=== PATIENT | female | born 1975 | race Asian ===

== ENCOUNTER 2016-11-02 21:12 | Inpatient (IN) | payer OTHER ==
[~2016-11-02] VITALS: Ht 170.2 cm; Wt 127.3 kg
[2016-11-02] MEDS ORDERED: PROTONIX 40MG T40 MG PO (21:24)
[2016-11-02] MEDS ORDERED: PREDNISONE20 MG PO (21:25)
[2016-11-02] MEDS ORDERED: CELLCEPT 5500 MG/TAB PO (21:26)
[2016-11-02] MEDS ORDERED: EFFEXOR 50M50 MG/TAB PO (21:27)
[2016-11-02] MEDS ORDERED: COUMADIN 1010 MG/TAB PO (21:27)
[2016-11-02] MEDS ORDERED: LIPITOR 40MG TA40 MG PO (21:27)
[2016-11-02] MEDS ORDERED: NOVOLOG 100U100 U/M1 SQ (21:28)
[2016-11-02] MEDS ORDERED: LANTUS100 U/ML SQ (21:28)
[2016-11-02] MEDS ORDERED: ELIQUIS 5MG PO (21:29)
[2016-11-02 22:32] LABS: BASO # 0.1 (0.0-0.2); BASO % 0.4 % (0.0-2.0); EOS % 0.2 % (0-4.0); GRAN # 13.4 (1.4-6.5); GRAN % 85.3 % (42.2-75.2); HEMATOCRIT 43.6 % (37.0-47.0); HEMOGLOBIN 13.9 g/dl (12.5-16.0); LYMPH % 6.1 % (20.0-51.0); MEAN CELL VOLUME 91 fl (80.0-100.0); MEAN CORPUSCULAR HEMOGLOBIN 29 pg (27.0-31.0); MEAN CORPUSCULAR HGB CONC 32 g/dl (33.0-37.0); MEAN PLATELET VOLUME 9.4 fl (7.4-10.4); MONO # 0.9 (0.1-0.6); MONO % 5.4 % (1.7-9.3); PLATELET COUNT 385 K/mm3 (130-400); RED BLOOD COUNT 4.82 M/mm3 (4.10-5.30); REDCELL DISTRIBUTION WIDTH-CV 14.8 % (11.5-14.5); WHITE BLOOD COUNT 15.7 K/mm3 (4.8-10.8)
[2016-11-02 22:40] LABS: INR 0.9 (0.8-3.0); PROTHROMBIN TIME 10.4 SECONDS (9.7-12.8)
[2016-11-02 22:42] LABS: PARTIAL THROMBOPLASTIN TIME 28.9 SECONDS (26.0-37.0)
[2016-11-02 22:45] LABS: ADJUSTED CALCIUM 9.6 mg/dL (8.4-10.2); ALANINE AMINOTRANSFERASE 23 U/L (9-52); ALKALINE PHOSPHATASE 105 U/L (50-136); ANION GAP 15 mmol/L (7-16); BILIRUBIN,TOTAL 0.6 mg/dL (0.0-1.0); BLOOD UREA NITROGEN 13 mg/dL (7-17); C-REACTIVE PROTEIN 0.7 mg/dL (0.0-0.9); CALCIUM 9.6 mg/dL (8.4-10.2); CARBON DIOXIDE 24 mmol/L (22-30); CHLORIDE 100 mmol/L (98-107); CREATININE, serum 0.54 mg/dL (0.52-1.25); GLUCOSE 288 mg/dL (74-106); LIPASE 244 U/L (23-300); POTASSIUM 3.7 mmol/L (3.4-5.0); SODIUM 139 mmol/L (137-145); TOTAL PROTEIN 7.4 gm/dL (6.4-8.2)
[2016-11-02 22:51] LABS: B-TYPE NATRIURETIC PEPTIDE 17 pg/mL (0-125)
[2016-11-02 23:02] LABS: PH 6 (5-8); SQUAMOUS EPITHELIAL None Seen /hpf; URINE APPEARANCE Clear; URINE BACTERIA Rare /hpf; URINE BILIRUBIN Negative (NEGATIVE); URINE BLOOD 1+ (NEGATIVE); URINE COLOR Yellow; URINE GLUCOSE 3+ (NEGATIVE); URINE KETONE Trace (NEGATIVE); URINE UROBILINOGEN Negative (NEGATIVE); URINE WBC 0-2 /hpf
[2016-11-02 23:09] LABS: AMPHETAMINE URINE POSITIVE; BARBITURATES URINE NEGATIVE; BENZODIAZEPINES URINE NEGATIVE; BUPRENORPHINE URINE NEGATIVE; METHADONE URINE NEGATIVE; OPIATES URINE NEGATIVE; OXYCODONE URINE NEGATIVE; PHENCYCLIDINE URINE NEGATIVE; PROPOXYPHENE URINE NEGATIVE; THC CANNABINOIDS URINE NEGATIVE
[2016-11-03 02:24] VITALS: BP 124/78; PULSE 89; TEMP 98
[2016-11-03 08:17] VITALS: BP 120/75; PULSE 92; TEMP 98.3
[2016-11-03 09:55] LABS: HEMATOCRIT 41.5 % (37.0-47.0); HEMOGLOBIN 13.4 g/dl (12.5-16.0); MEAN CELL VOLUME 90 fl (80.0-100.0); MEAN CORPUSCULAR HEMOGLOBIN 29 pg (27.0-31.0); MEAN CORPUSCULAR HGB CONC 32 g/dl (33.0-37.0); MEAN PLATELET VOLUME 9.1 fl (7.4-10.4); PLATELET COUNT 330 K/mm3 (130-400); RED BLOOD COUNT 4.61 M/mm3 (4.10-5.30); REDCELL DISTRIBUTION WIDTH-CV 14.8 % (11.5-14.5); WHITE BLOOD COUNT 12.2 K/mm3 (4.8-10.8)
[2016-11-03 09:56] LABS: ADD PATHOLOGY DIFF REVIEW NO
[2016-11-03 10:03] LABS: CREATININE, serum 0.59 mg/dL (0.52-1.25); POTASSIUM 3.5 mmol/L (3.4-5.0)
[2016-11-03 12:38] VITALS: BP 127/98; PULSE 92; TEMP 97.5
[2016-11-03 13:12] LABS: BAND 5 % (0-10); BASOPHIL 1 % (0-2); NEUTROPHILS 69 % (42.0-75.2); PLATELET ESTIMATE NORMAL (NORMAL); TOTAL CELLS COUNTED 100
[2016-11-03 16:26] VITALS: BP 132/74; PULSE 96; TEMP 98
[2016-11-03 19:27] VITALS: BP 142/88; PULSE 98; TEMP 98.3
[2016-11-03 23:26] VITALS: BP 124/69; PULSE 91; TEMP 98.3
[2016-11-04 04:25] VITALS: BP 129/87; PULSE 86; TEMP 98.7
[2016-11-04 08:06] VITALS: BP 139/93; PULSE 95; TEMP 98.1
[2016-11-04 11:11] VITALS: BP 142/87; PULSE 91; TEMP 98
[2016-11-04] MEDS ORDERED: ZOFRAN ODT4 MG PO (14:27)
[2016-11-04] MEDS ORDERED: AMOXICILLIN 8751 TAB PO (14:27)
[2016-11-04 15:32] VITALS: BP 118/74; PULSE 93; TEMP 98.4
== END 2016-11-04 17:33 | disposition home or self-care (01) | DRG 315 ==
LOC: COL.ER 21:12 → MEDICAL 11-03 00:44
PROVIDERS: Family Medicine; Physician Assistant
DX: T80.211A Bloodstream infection due to central venous catheter, initial encounter (principal); R65.10 Systemic inflammatory response syndrome (SIRS) of non-infectious origin without acute organ dysfunction; E11.42 Type 2 diabetes mellitus with diabetic polyneuropathy; F15.90 Other stimulant use, unspecified, uncomplicated; E78.5 Hyperlipidemia, unspecified; Z79.4 Long term (current) use of insulin; Z86.711 Personal history of pulmonary embolism; Z79.02 Long term (current) use of antithrombotics/antiplatelets
CPT/HCPCS: 99223-AI; 99239; J1170; J1815; J2405; J2543; J2550; J3370; J7030; J7040; J7050; J7517; Q9967

== ENCOUNTER 2016-11-18 21:20 | Inpatient (IN) | payer OTHER ==
[~2016-11-18] VITALS: Ht 170.2 cm; Wt 125.1 kg
[~2016-11-18 21:20] MED LIST: AMOXICILLIN 8751 TAB PO; CELLCEPT 5500 MG/TAB PO; COUMADIN 1010 MG/TAB PO; EFFEXOR 50M50 MG/TAB PO; ELIQUIS 5MG PO; LANTUS100 U/ML SQ; LIPITOR 40MG TA40 MG PO; NOVOLOG 100U100 U/M1 SQ; PREDNISONE20 MG PO; PROTONIX 40MG T40 MG PO; ZOFRAN ODT4 MG PO
[2016-11-18 22:11] LABS: BASO % 0.3 % (0.0-2.0); EOS % 0.3 % (0-4.0); GRAN % 76.2 % (42.2-75.2); HEMATOCRIT 38.8 % (37.0-47.0); HEMOGLOBIN 12.6 g/dl (12.5-16.0); MEAN CELL VOLUME 90 fl (80.0-100.0); MEAN CORPUSCULAR HEMOGLOBIN 29 pg (27.0-31.0); MEAN CORPUSCULAR HGB CONC 33 g/dl (33.0-37.0); MEAN PLATELET VOLUME 9.2 fl (7.4-10.4); MONO # 0.9 (0.1-0.6); MONO % 6.3 % (1.7-9.3); PLATELET COUNT 419 K/mm3 (130-400); RED BLOOD COUNT 4.29 M/mm3 (4.10-5.30); REDCELL DISTRIBUTION WIDTH-CV 14.6 % (11.5-14.5); WHITE BLOOD COUNT 14.4 K/mm3 (4.8-10.8)
[2016-11-18] MEDS ORDERED: GLUCOPHAGE500 MG/TAB PO (22:23)
[2016-11-18] MEDS ORDERED: PREDNISONE 5MG5 MG PO (22:24)
[2016-11-18] MEDS ORDERED: NEURONTIN100 MG/CAP PO (22:25)
[2016-11-18 22:26] LABS: PH 6 (5-8); SQUAMOUS EPITHELIAL 0-2 /hpf; URINE APPEARANCE Clear; URINE BACTERIA None Seen /hpf; URINE BILIRUBIN Negative (NEGATIVE); URINE BLOOD Negative (NEGATIVE); URINE COLOR Yellow; URINE GLUCOSE 2+ (NEGATIVE); URINE KETONE Trace (NEGATIVE); URINE RBC 0-2 /hpf; URINE UROBILINOGEN Negative (NEGATIVE); URINE WBC 0-2 /hpf
[2016-11-18 22:35] LABS: ADJUSTED CALCIUM 8.8 mg/dL (8.4-10.2); ALANINE AMINOTRANSFERASE 27 U/L (9-52); ALBUMIN 3.8 gm/dL (3.5-5.0); ALKALINE PHOSPHATASE 91 U/L (50-136); ANION GAP 13 mmol/L (7-16); BILIRUBIN,TOTAL 0.5 mg/dL (0.0-1.0); BLOOD UREA NITROGEN 12 mg/dL (7-17); C-REACTIVE PROTEIN 1.2 mg/dL (0.0-0.9); CALCIUM 8.6 mg/dL (8.4-10.2); CARBON DIOXIDE 26 mmol/L (22-30); CHLORIDE 102 mmol/L (98-107); CREATININE, serum 0.69 mg/dL (0.52-1.25); GLUCOSE 185 mg/dL (74-106); POTASSIUM 3.8 mmol/L (3.4-5.0); SODIUM 142 mmol/L (137-145)
[2016-11-18 22:44] LABS: AMPHETAMINE URINE NEGATIVE; BARBITURATES URINE NEGATIVE; BENZODIAZEPINES URINE NEGATIVE; BUPRENORPHINE URINE NEGATIVE; METHADONE URINE NEGATIVE; OPIATES URINE NEGATIVE; OXYCODONE URINE NEGATIVE; PHENCYCLIDINE URINE NEGATIVE; PROPOXYPHENE URINE NEGATIVE; THC CANNABINOIDS URINE NEGATIVE
[2016-11-18 22:58] LABS: ERYTHROCYTE SEDIMENTATION RATE 29 mm/hr (0-20)
[2016-11-18 23:57] VITALS: BP 114/69; PULSE 86; TEMP 98.2
[2016-11-19 04:19] VITALS: BP 106/66; PULSE 92; TEMP 98.1
[2016-11-19 07:27] VITALS: BP 114/72; PULSE 92; TEMP 97.4
[2016-11-19 12:02] VITALS: BP 113/70; PULSE 88; TEMP 97.6
[2016-11-19 16:45] VITALS: BP 130/72; PULSE 90; TEMP 98.6
[2016-11-19 19:31] VITALS: BP 111/70; PULSE 86; TEMP 98.6
[2016-11-19 23:38] VITALS: BP 102/58; PULSE 75; TEMP 98.1
[2016-11-20] VITALS (9 sets, daily range): BP systolic 95–132; BP diastolic 58–87; PULSE 77–101; TEMP 97.3–98.8
[2016-11-20 07:07] LABS: MEAN CELL VOLUME 93 fl (80.0-100.0); MEAN CORPUSCULAR HGB CONC 31 g/dl (33.0-37.0); MEAN PLATELET VOLUME 9.1 fl (7.4-10.4); RED BLOOD COUNT 3.78 M/mm3 (4.10-5.30); REDCELL DISTRIBUTION WIDTH-CV 14.9 % (11.5-14.5); WHITE BLOOD COUNT 7.8 K/mm3 (4.8-10.8)
[2016-11-20 07:22] LABS: HEMATOCRIT 35.1 % (37.0-47.0); MEAN CORPUSCULAR HEMOGLOBIN 29 pg (27.0-31.0)
[2016-11-20 07:23] LABS: PLATELET COUNT 315 K/mm3 (130-400)
[2016-11-20 09:02] LABS: BAND 15 % (0-10); BASOPHIL 1 % (0-2); EOSINOPHIL 1 % (0-4); METAMYELOCYTE 1 % (0-0); MYELOCYTE 8 % (0-0); NEUTROPHILS 51 % (42.0-75.2); TOTAL CELLS COUNTED 100
[2016-11-20 09:03] LABS: HYPOCHROMIA 2+; PLATELET ESTIMATE NORMAL (NORMAL)
[2016-11-20 09:04] LABS: ADD PATHOLOGY DIFF REVIEW YES
[2016-11-21] VITALS (8 sets, daily range): BP systolic 11–139; BP diastolic 63–96; PULSE 73–87; TEMP 98–98.7
[2016-11-22 04:57] VITALS: BP 115/73; PULSE 80; TEMP 98.6
[2016-11-22 06:37] LABS: MEAN CELL VOLUME 91 fl (80.0-100.0); MEAN CORPUSCULAR HGB CONC 32 g/dl (33.0-37.0); MEAN PLATELET VOLUME 9.4 fl (7.4-10.4); PLATELET COUNT 332 K/mm3 (130-400); REDCELL DISTRIBUTION WIDTH-CV 14.5 % (11.5-14.5); WHITE BLOOD COUNT 7.6 K/mm3 (4.8-10.8)
[2016-11-22 06:38] LABS: HEMATOCRIT 36.3 % (37.0-47.0); HEMOGLOBIN 11.6 g/dl (12.5-16.0); MEAN CORPUSCULAR HEMOGLOBIN 29 pg (27.0-31.0)
[2016-11-22 07:14] LABS: CALCIUM 8.1 mg/dL (8.4-10.2); CREATININE, serum 0.57 mg/dL (0.52-1.25)
[2016-11-22 07:27] VITALS: BP 140/93; PULSE 79; TEMP 98
[2016-11-22 12:21] VITALS: BP 137/89; PULSE 86; TEMP 97.8
[2016-11-22] MEDS ORDERED: NORCO 325 MG-51 TAB PO (14:45)
[2016-11-22 15:06] VITALS: BP 137/81; PULSE 93; TEMP 98.3
[2016-11-24 11:50] LABS: PATHOLOGY DIFF REVIEW OK
== END 2016-11-22 16:34 | disposition home health service (06) | DRG 638 ==
LOC: COL.ER 21:20 → MEDICAL 23:14
PROVIDERS: Emergency Medicine; Internal Medicine; Nurse Practitioner Family
DX: E11.621 Type 2 diabetes mellitus with foot ulcer (principal); L97.429 Non-pressure chronic ulcer of left heel and midfoot with unspecified severity; Z68.41 Body mass index [BMI] 40.0-44.9, adult; I50.32 Chronic diastolic (congestive) heart failure; E87.2 Acidosis; L93.0 Discoid lupus erythematosus; I73.00 Raynaud's syndrome without gangrene; E11.42 Type 2 diabetes mellitus with diabetic polyneuropathy; M35.00 Sjogren syndrome, unspecified; J44.9 Chronic obstructive pulmonary disease, unspecified; Z87.891 Personal history of nicotine dependence; E66.01 Morbid (severe) obesity due to excess calories; B37.2 Candidiasis of skin and nail; F15.10 Other stimulant abuse, uncomplicated
CPT/HCPCS: 99223-AI; 99232-AI; 99233-AI; 99239; A9585; G9654; J1170; J1650; J1720; J1815; J2405; J2543; J2704; J3370; J7030; J7050; J7512